=== PATIENT | male | born 1960 | race Caucasian/White ===

== ENCOUNTER 2018-10-31 18:30 | Observation (INO) ==
--- NOTE | 2018-10-31 19:35 | ED ---
HPI General Chief Complaint: Chest Pain Stated Complaint: Chest pain Time Seen by Provider: 10/31/18 19:21 Source: patient Mode of arrival: ambulatory Limitations: no limitations History of Present Illness HPI narrative: The patient is a 58-year-old male who presents to the emergency department for chest pain. The patient states he recently moved from [place] to the local area and does not have a local primary physician. The patient states he ran out of his medications including Coumadin, cannot recall all the names of his medications. The patient is on Coumadin for history of mechanical valve replacement to the aortic valve for a "leaky valve ". The [facility] , however, was unable to get the medications because he did not have a prescription. The patient was walking at approximately 5 PM when he developed chest pain which was substernal and radiated to the left upper extremity and shoulder. The pain is described as heaviness, constant, and associate with nausea, vomiting, diaphoresis, and dyspnea. The patient denies any known history of CAD or previous stent placement. The patient does have a history of aortic valve repair, mechanical, as well as hypertension. The patient denies any history of hyperlipidemia, diabetes, or tobacco use. Symptoms are moderate , there are no current alleviating factors. There are no current alleviating factors. MD complaint: Reports chest pain Duration: constant Onset: during exertion Pain location: Reports substernal and left chest Severity: moderate Severity scale (1-10): 5 Quality: Reports heaviness Pain radiation: Reports LUE Relieving factors: nothing Exacerbating factors: exertion Associated symptoms: Reports nausea, vomiting, diaphoresis and dyspnea Treatments prior to arrival chest pain: Reports none Related Data Home Medications Medication Instructions Recorded Confirmed atorvastatin 20 mg PO DAILY 10/31/18 10/31/18 bupropion HCl 150 mg PO BID 10/31/18 10/31/18 levothyroxine 25 mcg PO DAILY 10/31/18 10/31/18 losartan 50 mg PO DAILY 10/31/18 10/31/18 metoprolol tartrate 25 mg PO BID 10/31/18 10/31/18 ranitidine HCl 150 mg PO BID 10/31/18 10/31/18 warfarin [Coumadin] 3 mg PO QTUTHSA 10/31/18 10/31/18 warfarin [Coumadin] 6 mg PO DAILY 10/31/18 10/31/18 Allergies Allergy/AdvReac Type Severity Reaction Status Date / Time Penicillins Allergy Rash Verified 10/31/18 18:37 Review of Systems ROS: all other systems reviewed are negative [facility] Medical History Medical History Hypertension (Acute) Surgical History Surgical History H/O aortic valve replacement (Acute) Hx of cholecystectomy (Acute) Mechanical heart valve present (Acute) Social History Social History Substance History: Past History Second Hand Smoke Exposure: No Smoking Status: Former smoker How Often Do You Have a Drink Containing Alcohol: Never Recent Out of Country Travel within the Last 8 Weeks: No Immunization History Tetanus Immunization: Unsure Exam Narrative Exam Narrative: GENERAL: Awake, alert, nontoxic-appearing 58-year-old male who appears his stated age and is in no acute respiratory distress. SKIN: Focused skin assessment warm/dry. Multiple tattoos noted. HEAD: Atraumatic. Normocephalic. EYES: Pupils equal and round. No scleral icterus. No injection or drainage. ENT: No nasal bleeding or discharge. Mucous membranes pink and moist. NECK: Trachea midline. No JVD. CARDIOVASCULAR: Regular, heart rate in the 60s. Well-healed sternal scar. A click is noted over the heart consistent with previous mechanical valve replacement. RESPIRATORY: No accessory muscle use. Clear to auscultation. Breath sounds equal bilaterally. GASTROINTESTINAL: Abdomen soft, non-tender, nondistended. No epigastric tenderness. MUSCULOSKELETAL: No obvious deformities. No clubbing. No cyanosis. No edema. NEUROLOGICAL: Awake and alert. No obvious cranial nerve deficits. Motor grossly within normal limits. Normal speech. Nonfocal. Oriented x4. PSYCHIATRIC: Appropriate mood and affect; insight and judgment normal. Course Initial Documented Vital Signs Temperature 98.8 F 10/31/18 18:38 Pulse Rate 70 10/31/18 18:38 Respiratory Rate 18 10/31/18 18:38 Blood Pressure 179/89 H 10/31/18 18:38 Pulse Oximetry 99 10/31/18 18:38 Last Documented Vital Signs Temperature 98.8 F 10/31/18 18:38 Pulse Rate 65 10/31/18 19:32 Respiratory Rate 17 10/31/18 19:32 Blood Pressure 163/77 H 10/31/18 19:32 Pulse Oximetry 99 10/31/18 19:32 Medical Decision Making MDM Narrative Medical decision making narrative: IV was established, labs are drawn and sent, and the patient was placed on cardiac telemetry monitoring and continuous pulse oximetry monitoring. He was ordered and interpreted. Chest x-ray was obtained. INR was sent to lab. The patient was administered aspirin and placed on Nitropaste. The patient's INR was subtherapeutic at 1.5, therefore, the patient was administered Lovenox 1 mg/kg subcutaneously and Coumadin 6 mg orally. He cannot recall the exact dosing of his Coumadin, however, does note he takes 6 mg on certain days. He cannot recall the names of his other medications. Chest x-ray reveals postoperative changes with a mechanical valve but no obvious pulmonary edema and BNP is normal. The patient does have chest pain that radiates from under the left axilla with a history of hypertension, therefore, will be placed in the chest pain center for serial cardiac enzymes. He may benefit from treadmill stress test and/or nuclear medicine myocardial perfusion scan. The patient is comfortable with this plan of care and disposition. The patient does have a service dog, I discussed the service dog with the charge nurse who states the dog is able to stay in the hospital. Therefore, the patient will be a 23-hour observation to the chest pain center. Nursing staff was able to contact the patient's pharmacy and retrieve the rest of the medications including metoprolol, Zantac, levothyroxine, bupropion. Medical Screen Exam Complete: Yes Emergency Medical Condition: Yes Differential Diagnosis Differential Diagnosis: Differential diagnosis includes ACS, aortic valve repair , GERD, esophageal spasm, pancreatitis, gastritis, pleural effusion, pneumonia, pulmonary embolism. Lab Data Lab results reviewed: Yes I reviewed the patient's lab results. Result diagrams: 10/31/18 19:35 10/31/18 19:35 Lab Results 10/31/18 10/31/18 10/31/18 Range/Units 19:35 19:35 19:35 WBC 8.4 (4.0-11.0) th/mm3 RBC 4.30 L (4.50-5.90) mil/mm3 Hgb 12.5 L (13.0-17.0) gm/dL Hct 37.3 L (39.0-51.0) % MCV 86.9 (80.0-100.0) fL MCH 29.1 (27.0-34.0) pg MCHC 33.5 (32.0-36.0) % RDW 14.5 (11.6-17.2) % Plt Count 186 (150-450) th/mm3 MPV 8.0 (7.0-11.0) fL Neut % (Auto) 68.1 (16.0-70.0) % Lymph % (Auto) 23.6 (9.0-44.0) % Emmons % (Auto) 7.1 (0.0-8.0) % Eos % (Auto) 0.9 (0.0-4.0) % Baso % (Auto) 0.3 (0.0-2.0) % Neut # (Auto) 5.7 (1.8-7.7) th/mm3 Lymph # (Auto) 2.0 (1.0-4.8) th/mm3 Emmons # (Auto) 0.6 (0.0-0.9) th/mm3 Eos # (Auto) 0.1 (0.0-0.4) th/mm3 Baso # (Auto) 0.0 (0.0-0.2) th/mm3 WBC Differential . Differential Comment Auto diff final PT 14.7 H (9.8-11.6) sec INR 1.5 Ratio APTT 28.2 (23.4-31.7) sec Sodium 140 (136-145) meq/L Potassium 4.1 (3.5-5.1) meq/L Chloride 104 (98-107) meq/L Carbon Dioxide 28.0 (21.0-32.0) meq/L Anion Gap 8 (5-15) meq/L BUN 15 (7-18) mg/dL Creatinine 0.93 (0.60-1.30) mg/dL Estimated GFR 84 L (>89) mL/min Random Glucose 77 (74-106) mg/dL Calcium 8.8 (8.5-10.1) mg/dL Magnesium 1.8 (1.5-2.5) mg/dL Total Bilirubin 0.7 (0.2-1.0) mg/dL AST 25 (15-37) U/L ALT 18 (12-78) U/L Alkaline Phosphatase 49 (45-117) U/L Total Creatine Kinase 185 (39-308) U/L CK-MB (CK-2) 1.9 (0.5-3.6) ng/mL Troponin I Less than 0.02 L (0.02-0.05) ng/mL Total Protein 7.4 (6.4-8.2) g/dL Albumin 3.8 (3.4-5.0) g/dL Lipase 216 (73-393) U/L Imaging Data Attestation: I personally reviewed and interpreted this imaging study as follows : My impression: No acute cardiopulmonary disease. Mechanical valve noted. Radiologist's impression: Chest X-Ray 10/31/18 19:28 CONCLUSION: No acute cardiopulmonary disease. ECG Data EKG Prior to Arrival: No Attestation: I personally reviewed and interpreted this ECG as follows: Interpretation: EKG reveals normal sinus rhythm with a rate of 66. Moderate intraventricular conduction delay with QRS of [address] elevations or depressions noted. Discharge Plan Discharge Disposition Patient Disposition: ED Admit(ED Internal Use Only) Discharge Condition Condition: Stable Discharge Order Discharge Orders: ED Use Only Admit Order (Routine); Ordered 10/31/18 Ordered By: Senthil Markham Discharge Details Diagnosis: Chest pain Physicians Team ED Provider: Senthil Markham Primary Care Provider: UNKNOWN, Rxs /Orders / Referrals /Forms Prescriptions: No Action warfarin [Coumadin] 3 mg Tablet 3 mg PO QTUTHSA RF: 0 warfarin [Coumadin] 6 mg Tablet 6 mg PO DAILY RF: 0 losartan 50 mg Tablet 50 mg PO DAILY RF: 0 bupropion HCl 150 mg Tablet Sustained-Release 12 Hr 150 mg PO BID RF: 0 atorvastatin 20 mg Tablet 20 mg PO DAILY RF: 0 levothyroxine 25 mcg Tablet 25 mcg PO DAILY RF: 0 ranitidine HCl 150 mg Tablet 150 mg PO BID RF: 0 metoprolol tartrate 25 mg Tablet 25 mg PO BID RF: 0 Discharge Instructions Patient Printed Instructions: Chest Pain (ED) Status ED Status: Admitted Observation Patient
--- NOTE | 2018-10-31 19:56 | XR ---
EXAM DATE: 10/31/2018 7:52 PM EST AGE/SEX: 58 years / Male INDICATIONS: Chest pain for 3 hours. CLINICAL DATA: This is the patient's initial encounter. Patient reports that signs and symptoms have been present for 1 day and indicates a pain score of 5/10. MEDICAL/SURGICAL HISTORY: None. . Valve replacement. COMPARISON: None. FINDINGS: A single AP view of the chest demonstrates the lungs to be symmetrically aerated without evidence of mass, infiltrate or effusion. The cardiomediastinal contours are unremarkable. Osseous structures a re intact. The patient is status post median sternotomy. There is an artificial heart valve in place . CONCLUSION: No acute cardiopulmonary disease. Electronically signed by: Isauro Villa MD 10/31/2018 7:55 PM EST
[2018-10-31 20:02] LABS: Baso % (Auto) 0.3 % (0.0-2.0); Eos # (Auto) 0.1 th/mm3 (0.0-0.4); Eos % (Auto) 0.9 % (0.0-4.0); Hematocrit 37.3 % (39.0-51.0); Hemoglobin 12.5 gm/dL (13.0-17.0); Lymph % (Auto) 23.6 % (9.0-44.0); Mean Corpuscular HGB Conc 33.5 % (32.0-36.0); Mean Corpuscular Hemoglobin 29.1 pg (27.0-34.0); Mean Corpuscular Volume 86.9 fL (80.0-100.0); Mono # (Auto) 0.6 th/mm3 (0.0-0.9); Mono % (Auto) 7.1 % (0.0-8.0); Neut # (Auto) 5.7 th/mm3 (1.8-7.7); Neut % (Auto) 68.1 % (16.0-70.0); Platelet Count 186 th/mm3 (150-450); Red Cell Distribution Width 14.5 % (11.6-17.2); White Blood Count 8.4 th/mm3 (4.0-11.0)
[2018-10-31 20:12] LABS: Activated Partial Thrombo Time 28.2 sec (23.4-31.7); INR 1.5 Ratio; Prothrombin Time 14.7 sec (9.8-11.6)
[2018-10-31] MEDS ORDERED: Enoxaparin Inj 100 MG/ML Syringe SQ ONE (20:15)
[2018-10-31 20:24] LABS: Albumin 3.8 g/dL (3.4-5.0); Anion Gap 8 meq/L (5-15); Aspartate Aminotransferase 25 U/L (15-37); Blood Urea Nitrogen 15 mg/dL (7-18); Calcium 8.8 mg/dL (8.5-10.1); Chloride 104 meq/L (98-107); Glomerular Filtration Rate 84 mL/min (>89); Glucose,Random 77 mg/dL (74-106); Lipase 216 U/L (73-393); Magnesium 1.8 mg/dL (1.5-2.5); Potassium 4.1 meq/L (3.5-5.1); Sodium 140 meq/L (136-145)
[2018-10-31 20:26] LABS: Alanine Aminotransferase 18 U/L (12-78)
[2018-10-31 20:29] LABS: Alkaline Phosphatase 49 U/L (45-117); Creatine Kinase 185 U/L (39-308); Total Protein 7.4 g/dL (6.4-8.2)
[2018-10-31 20:41] LABS: Creatine Kinase MB 1.9 ng/mL (0.5-3.6)
[2018-10-31] MEDS ORDERED: Acetaminophen 500 MG Tablet PO PRN (20:46)
[2018-10-31] MEDS ORDERED: Morphine Inj 4 MG/ML Vial IV.PUSH PRN (20:46)
[2018-10-31] MEDS ORDERED: Famotidine 20 MG Tablet PO SCH (21:00)
[2018-10-31 23:24] LABS: Troponin I 0.02 ng/mL (0.02-0.05)
[2018-11-01 00:21] VITALS: RESP 16
[2018-11-01 03:47] LABS: Troponin I 0.02 ng/mL (0.02-0.05)
--- NOTE | 2018-11-01 06:57 | ECG ---
Date Performed: 10/31/2018 Time Performed: 19:27:33 PTAGE: 58 years EKG: Sinus rhythm BORDERLINE LEFT AXIS DEVIATION MODERATE INTRAVENTRICULAR CONDUCTION DELAY BORDERLINE ECG NO PREVIOUS TRACING DOCTOR: Roel Mak Interpretating Date/Time 11/02/2018 07:08:20
--- NOTE | 2018-11-01 08:33 | P.HPCA ---
History of Present Illness Primary Care Physician: UNKNOWN Chief Complaint: Chest pain History of Present Illness: This is a 58-year-old male with a stated history of aortic valve replacement in 2007, hypertension, hyperlipidemia, and hypothyroidism that presents to ED to be evaluated for chest pain and also stating he is out of his medications. States he recently moved to this area from [place] about 2 weeks ago. Ran out of medications 2 weeks ago. List of medications include atorvastatin, bupropion, levothyroxine, losartan, metoprolol tartrate, ranitidine, and 2 different doses of warfarin (3 mg and 6 mg.) States he alternates the warfarin doses because of he takes only 6 mg his INR will elevate too high. Also states he does not have a means of checking his Coumadin level and cannot recall the last time that was checked. Complains of developing a pressure in the center of his chest as he is walking at [facility] yesterday at 1635. He was short of breath with it. No nausea or diaphoresis. States he had a discomfort radiating into his left arm. States symptoms lasted about 4 hours. Found nothing to worsen or improve them. He walked from [facility] to the emergency department, states symptoms did not worsen during that activity. Cannot recall his last cardiac evaluation. States is easily been more than a year ago however he cannot recall truly when it was or where it was done at. He does not believe he has had a heart catheterization since 2007. States he had a heart catheterization prior to the valve being replaced, dates no intervention was needed regarding his coronary arteries. History of aortic valve replacement in 2007. Does not truly know his coronary artery status other than he needed no stenting and did not need bypass when his valve was replaced. Hypertension, hyperlipidemia, and hypothyroidism. Denies diabetes. States his mother in her 40s of some type of cardiac event. States he quit smoking 15 years ago but prior to that he smoked on average 2 pack of cigarettes daily for 12 years. States he has had no alcohol or illicit drug use a few years. - Diagnosis (1) Chest pain (2) History of aortic valve replacement (3) Hypertension (4) Hyperlipidemia (5) Hypothyroidism Review of Systems General: Patient denies fevers, chills, and recent travel. HEENT: Patient denies headache, sore throat, difficulty swallowing. Cardiovascular: Has the chest discomfort as mentioned above. Denies sensation of heart beating rapidly or irregularly. No syncope. Denies diaphoresis. Respiratory: He was short of breath. Denies inspirational chest discomfort. Denies coughing wheezing or hemoptysis. GI: Patient denies nausea, vomiting, diarrhea, abdominal pain, bloody stools. Musculoskeletal: Patient denies joint pain or edema. Denies calf pain or edema. Neurovascular: Patient denies numbness, tingling, weakness in extremities. Denies headache. Endocrine: Denies polyuria and polydipsia. Hematologic: Denies easy bruising. Skin: Denies rash or itching. [facility] - History History Provided By: Patient - Medical History Medical History: Medical History (Last Updated 10/31/18 @ 19:29 by Latricia Milan) Hypertension - Surgical History Surgical History: Surgical History (Last Updated 10/31/18 @ 19:29 by Latricia Milan) H/O aortic valve replacement Hx of cholecystectomy Mechanical heart valve present - Tobacco History Second Hand Smoke Exposure: No Tobacco Use In Past 30 Days: No Smoking Status: Former smoker Tobacco Type: Cigarettes - Alcohol History How Often Do You Have a Drink Containing Alcohol: Never - Substance Use History Substance History: Past History - Substance Use Type Crack/Cocaine Status: Sustained Remission Route Used: Inhalation - Travel History Recent Travel in the [place] Within the Last 8 Weeks: Yes Recent Travel Out of the Country Within the Last 8 Weeks: No - Immunization History Tetanus Immunization: Unsure Medications and Allergies Active Medications: Active Medications Acetaminophen (Tylenol) 500 mg PO Q4H PRN PRN Reason: HEADACHE Last Admin: 10/31/18 23:26 Dose: 500 mg Aspirin (Aspirin) 325 mg PO DAILY [facility] Atorvastatin Calcium (Lipitor) 20 mg PO DAILY [facility] Bupropion HCl (Wellbutrin Sr) 150 mg PO BID [facility] Famotidine (Pepcid) 20 mg PO BID [facility] Last Admin: 10/31/18 21:05 Dose: 20 mg Levothyroxine Sodium (Synthroid) 25 mcg PO DAILY [facility] Losartan Potassium (Cozaar) 50 mg PO DAILY [facility] Metoprolol Tartrate (Lopressor) 25 mg PO BID [facility] Morphine Sulfate (Morphine Inj) 2 mg IV.PUSH Q4H PRN PRN Reason: PAIN SCALE 8 TO 10 Nitroglycerin (Nitrostat Sl) 0.4 mg SL Q5M PRN PRN Reason: CHEST PAIN Non-Formulary Medication (Ranitidine Hcl [Ranitidine Hcl]) 150 mg PO BID [facility] Ondansetron HCl (Zofran Inj) 4 mg IV.PUSH Q6H PRN PRN Reason: NAUSEA Sodium Chloride (Ns Flush) 2 ml IV.FLUSH UNSCH PRN PRN Reason: FLUSH AFTER USING IV ACCESS Sodium Chloride (Ns Flush) 2 ml IV.FLUSH BID [facility] Last Admin: 10/31/18 21:05 Dose: 2 ml Sodium Chloride (Ns Flush) 2 ml IV.FLUSH PRN PRN PRN Reason: FLUSH AFTER USING IV ACCESS Allergies Allergy/AdvReac Type Severity Reaction Status Date / Time Penicillins Allergy Rash Verified 10/31/18 18:37 Home Medications Medication Instructions Recorded Confirmed Type atorvastatin 20 mg PO DAILY 10/31/18 10/31/18 History bupropion HCl 150 mg PO BID 10/31/18 10/31/18 History levothyroxine 25 mcg PO DAILY 10/31/18 10/31/18 History losartan 50 mg PO DAILY 10/31/18 10/31/18 History metoprolol tartrate 25 mg PO BID 10/31/18 10/31/18 History ranitidine HCl 150 mg PO BID 10/31/18 10/31/18 History warfarin [Coumadin] 3 mg PO QTUTHSA 10/31/18 10/31/18 History warfarin [Coumadin] 6 mg PO DAILY 10/31/18 10/31/18 History Exam Vital signs: Vital Signs 10/31/18 18:38 10/31/18 19:32 11/01/18 00:00 Temperature 98.8 F 98.4 F Pulse Rate 70 65 66 Respiratory Rate 18 17 16 Blood Pressure 179/89 H 163/77 H 114/65 Pulse Oximetry 99 99 97 11/01/18 04:00 Temperature 97.9 F Pulse Rate 57 L Respiratory Rate 16 Blood Pressure 120/69 Pulse Oximetry 96 Intake & Output 10/31/18 11/01/18 11/01/18 18:59 06:59 18:59 Weight 99.79 kg 99.79 kg Other: Date of Last Bowel Movement 10/31/18 Weight On Admission 99.79 kg Narrative: GENERAL: This is a well-nourished, well-developed patient, in no apparent distress. Patient speaks in clear complete sentences. Patient is pleasant. HEENT: Head is atraumatic and normocephalic. Neck is supple without lymphadenopathy and trachea is midline. No JVD or carotid bruits. CARDIOVASCULAR: Grade 2 systolic murmur with click on right sternal border. Regular rate and rhythm without gallops, or rubs. RESPIRATORY: Clear to auscultation. Breath sounds equal bilaterally. No wheezes , rales, or rhonchi. Chest wall is nontender. No use of accessory muscles. GASTROINTESTINAL: Abdomen is nontender, nondistended. Abdomen soft. No obvious pulsatile mass or bruit. No CVA tenderness. Strong femoral pulses bilaterally. Normal bowel sounds in all quadrants. MUSCULOSKELETAL: Patient is moving upper and lower extremities freely. No calf tenderness or edema, no Homans sign. Strong pulses in upper and lower extremities. NEUROLOGICAL: Patient is alert and oriented. Cranial nerves 2-12 are grossly intact. No focal deficits and speech is clear. SKIN: No rash and turgor is normal. Results 10/31/18 19:35 10/31/18 19:35 Cardiac Enzymes 10/31/18 10/31/18 11/01/18 Range/Units 19:35 22:35 01:35 AST 25 (15-37) U/L CK-MB (CK-2) 1.9 (0.5-3.6) ng/mL Troponin I Less than 0.02 L 0.02 0.02 (0.02-0.05) ng/mL Coagulation 10/31/18 Range/Units 19:35 PT 14.7 H (9.8-11.6) sec APTT 28.2 (23.4-31.7) sec CBC 10/31/18 Range/Units 19:35 WBC 8.4 (4.0-11.0) th/mm3 RBC 4.30 L (4.50-5.90) mil/mm3 Hgb 12.5 L (13.0-17.0) gm/dL Hct 37.3 L (39.0-51.0) % Plt Count 186 (150-450) th/mm3 Neut # (Auto) 5.7 (1.8-7.7) th/mm3 Lymph # (Auto) 2.0 (1.0-4.8) th/mm3 Perkins # (Auto) 0.6 (0.0-0.9) th/mm3 Eos # (Auto) 0.1 (0.0-0.4) th/mm3 Baso # (Auto) 0.0 (0.0-0.2) th/mm3 Comprehensive Metabolic Panel 10/31/18 Range/Units 19:35 Sodium 140 (136-145) meq/L Potassium 4.1 (3.5-5.1) meq/L Chloride 104 (98-107) meq/L Carbon Dioxide 28.0 (21.0-32.0) meq/L BUN 15 (7-18) mg/dL Creatinine 0.93 (0.60-1.30) mg/dL Calcium 8.8 (8.5-10.1) mg/dL AST 25 (15-37) U/L ALT 18 (12-78) U/L Alkaline Phosphatase 49 (45-117) U/L Total Protein 7.4 (6.4-8.2) g/dL Albumin 3.8 (3.4-5.0) g/dL Intake and Output 10/31/18 11/01/18 11/01/18 22:59 06:59 14:59 Other: Date of Last Bowel Movement 10/31/18 10/31/18 Weight 99.79 kg 99.79 kg Weight On Admission 99.79 kg - Imaging and Cardiology Imaging: Impressions Chest X-Ray 10/31/18 19:28 CONCLUSION: No acute cardiopulmonary disease. EKG interpretations - EKG EKG shows: sinus rhythm (Sinus rhythm with nonspecific T wave changes.) Caprini VTE Risk Assessment Caprini VTE Risk Assessment: No/Low Risk (score <= 1) Caprini Risk Assessment Model: Point Value = 1 Point Value = 2 Point Value = 3 Point Value = 5 Age 41-60 Minor surgery BMI > 25 kg/m2 Swollen legs Varicose veins or History of unexplained or recurrent spontaneous Oral contraceptives or hormone replacement Sepsis (< 1 month) Serious lung disease, including pneumonia (< 1 month) Abnormal pulmonary function Acute myocardial infarction Congestive heart failure (< 1 month) History of inflammatory bowel disease Medical patient at bed rest Age 61-74 Arthroscopic surgery Major open surgery (> 45 min) Laparoscopic surgery (> 45 min) Malignancy Confined to bed (> 72 hours) Immobilizing plaster cast Central venous access Age >= 75 History of VTE Family history of VTE Factor V Leiden Prothrombin [id number] Lupus anticoagulant Anticardiolipin antibodies Elevated serum homocysteine Heparin-induced thrombocytopenia Other congenital or acquired thrombophilia Stroke (< 1 month) Elective arthroplasty Hip, pelvis, or leg fracture Acute spinal cord injury (< 1 month) Prophylaxis Regimen: Total Risk Factor Score Risk Level Prophylaxis Regimen 0-1 Low Early ambulation 2 Moderate Order ONE of the following: *Sequential Compression Device (SCD) *Heparin 5000 units SQ BID 3-4 Higher Order ONE of the following medications: *Heparin 5000 units SQ TID *Enoxaparin/Lovenox 40 mg SQ daily (WT < 150 kg, CrCl > 30 mL/min) *Enoxaparin/Lovenox 30 mg SQ daily (WT < 150 kg, CrCl > 10-29 mL/min) *Enoxaparin/Lovenox 30 mg SQ BID (WT < 150 kg, CrCl > 30 mL/min) AND/OR *Sequential Compression Device (SCD) 5 or more Highest Order ONE of the following medications: *Heparin 5000 units SQ TID (Preferred with Epidurals) *Enoxaparin/Lovenox 40 mg SQ daily (WT < 150 kg, CrCl > 30 mL/min) *Enoxaparin/Lovenox 30 mg SQ daily (WT < 150 kg, CrCl > 10-29 mL/min) *Enoxaparin/Lovenox 30 mg SQ BID (WT < 150 kg, CrCl > 30 mL/min) AND *Sequential Compression Device (SCD) Assessment and Plan - Assessment (1) Chest pain Code(s): R07.9 - Chest pain, unspecified Status: Acute (2) History of aortic valve replacement Code(s): Z95.2 - Presence of prosthetic heart valve Status: Acute (3) Hypertension Code(s): I10 - Essential (primary) hypertension Status: Acute (4) Hyperlipidemia Code(s): E78.5 - Hyperlipidemia, unspecified Status: Acute (5) Hypothyroidism Code(s): E03.9 - Hypothyroidism, unspecified Status: Acute - Plan * Chest pain: Patient has had serial cardiac enzymes and EKGs for ruling out purposes. He will be seen by Dr. Aaron of cardiology and the chest pain center and will undergo a Lexiscan. He will be discharged home if his stress test is nonischemic with instructions to follow-up with the PCP and [facility]. Return to ED for interval issues. He will need local physician for medication refills. * History of aortic valve replacement: He needs a follow-up with [facility]. He needs to be on his medication as instructed. He should have his INR levels managed by same provider. * Hypertension: Continue medication. * Hyperlipidemia: Continue medication. * Hypothyroidism: Continue medication. Patient is stable at this time. He is agreeable to this plan. H&P: Quality - VTE Deep Vein Thrombosis/Pulmonary Embolism Present on Admission: No (1) Chest pain Qualifiers: Chest pain type: unspecified Qualified Code(s): R07.9 - Chest pain, unspecified
[2018-11-01] MEDS ORDERED: Famotidine 20 MG Tablet PO SCH (09:00)
[2018-11-01] MEDS ORDERED: Metoprolol Tartrate 25 MG Tablet PO SCH (09:00)
[2018-11-01] MEDS ORDERED: buPROPion 150 MG 12 HR Tablet PO SCH (09:00)
[2018-11-01] MEDS ORDERED: Aspirin 325 MG Tablet PO SCH (09:00)
--- NOTE | 2018-11-01 09:14 | ECG ---
Date Performed: 11/01/2018 Time Performed: 01:40:05 PTAGE: 58 years EKG: Sinus rhythm MARKED LEFT AXIS DEVIATION PATTERN CONSISTENT WITH PULMONARY DISEASE NONSPECIFIC T-WAVE ABNORMALITY ABNORMAL ECG PREVIOUS TRACING : 10/31/2018 22.38 Since previous tracing, no significant change noted DOCTOR: Thien Murphy Interpretating Date/Time 11/01/2018 09:12:13
--- NOTE | 2018-11-01 09:14 | ECG ---
Date Performed: 10/31/2018 Time Performed: 22:38:00 PTAGE: 58 years EKG: Sinus rhythm BORDERLINE LEFT AXIS DEVIATION NONSPECIFIC T-WAVE ABNORMALITY BORDERLINE ECG PREVIOUS TRACING : 10/31/2018 19.27 Since previous tracing, T wave changes are new DOCTOR: Thien Murphy Interpretating Date/Time 11/01/2018 09:12:58
--- NOTE | 2018-11-01 10:15 | P.PNCA ---
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 He could not get renewed prescriptions either [facility] or [facility] and came to the emergency room so that he could refill. However he complained of chest pain described as an episode yesterday at about 4:00 which was a heaviness in his chest with no radiation. This was not precipitated or relieved by any factors. He denies any associated symptoms such as nausea vomiting diaphoresis. (This history differs from his emergency room history) The pain abated by this morning but subsequently he has had 2 episodes of sharp stabbing pain lasting only a couple of seconds precipitated by motion. His other real complaint is that he has a lump that is come up in the arch of his left foot that is severely painful impeding his ability to walk well. He also complains of some numbness and tingling in his left leg and thigh. Pertinent history includes hypertension hyperlipidemia and possible thyroid disease. Unfortunately he is either a poor or vague historian. He does deny alcohol tobacco and drug abuse for many years but does have a distant history of heavy use. Medications and Allergies Active Medications: Active Medications Acetaminophen (Tylenol) 500 mg PO Q4H PRN PRN Reason: HEADACHE Last Admin: 10/31/18 23:26 Dose: 500 mg Aspirin (Aspirin) 325 mg PO DAILY [facility] Last Admin: 11/01/18 08:49 Dose: 325 mg Atorvastatin Calcium (Lipitor) 20 mg PO DAILY [facility] Last Admin: 11/01/18 08:49 Dose: 20 mg Bupropion HCl (Wellbutrin Sr) 150 mg PO BID [facility] Last Admin: 11/01/18 08:49 Dose: 150 mg Famotidine (Pepcid) 20 mg PO BID [facility] Last Admin: 11/01/18 08:49 Dose: 20 mg Levothyroxine Sodium (Synthroid) 25 mcg PO DAILY@0600 [facility] Last Admin: 11/01/18 09:00 Dose: 25 mcg Losartan Potassium (Cozaar) 50 mg PO DAILY [facility] Last Admin: 11/01/18 08:49 Dose: 50 mg Metoprolol Tartrate (Lopressor) 25 mg PO BID [facility] Last Admin: 11/01/18 08:49 Dose: 25 mg Morphine Sulfate (Morphine Inj) 2 mg IV.PUSH Q4H PRN PRN Reason: PAIN SCALE 8 TO 10 Nitroglycerin (Nitrostat Sl) 0.4 mg SL Q5M PRN PRN Reason: CHEST PAIN Ondansetron HCl (Zofran Inj) 4 mg IV.PUSH Q6H PRN PRN Reason: NAUSEA Sodium Chloride (Ns Flush) 2 ml IV.FLUSH BID [facility] Last Admin: 11/01/18 08:49 Dose: 2 ml Sodium Chloride (Ns Flush) 2 ml IV.FLUSH PRN PRN PRN Reason: FLUSH AFTER USING IV ACCESS Allergies Allergy/AdvReac Type Severity Reaction Status Date / Time Penicillins Allergy Rash Verified 10/31/18 18:37 Home Medications Medication Instructions Recorded Confirmed Type atorvastatin 20 mg PO DAILY 10/31/18 10/31/18 History bupropion HCl 150 mg PO BID 10/31/18 10/31/18 History levothyroxine 25 mcg PO DAILY 10/31/18 10/31/18 History losartan 50 mg PO DAILY 10/31/18 10/31/18 History metoprolol tartrate 25 mg PO BID 10/31/18 10/31/18 History ranitidine HCl 150 mg PO BID 10/31/18 10/31/18 History warfarin [Coumadin] 3 mg PO QTUTHSA 10/31/18 10/31/18 History warfarin [Coumadin] 6 mg PO DAILY 10/31/18 10/31/18 History Physical Exam Vital signs: Vital Signs 10/31/18 18:38 10/31/18 19:32 11/01/18 00:00 Temperature 98.8 F 98.4 F Pulse Rate 70 65 66 Respiratory Rate 18 17 16 Blood Pressure 179/89 H 163/77 H 114/65 Pulse Oximetry 99 99 97 11/01/18 04:00 11/01/18 08:47 Temperature 97.9 F 98.1 F Pulse Rate 57 L 56 L Respiratory Rate 16 16 Blood Pressure 120/69 139/75 Pulse Oximetry 96 97 Intake & Output 10/31/18 11/01/18 11/01/18 18:59 06:59 18:59 Weight 99.79 kg 99.79 kg Other: Date of Last Bowel Movement 10/31/18 Weight On Admission 99.79 kg Narrative: Well-nourished well-developed heavily tattooed white male resting comfortably in bed with his dog at the bedside. Head bald, normocephalic atraumatic Eyes PERRLA EOMI sclera clear mouth mucous membranes moist tongue well papillated teeth in poor state of repair but no lesions Neck supple no masses nodes no JVD Chest clear to auscultation with no rales wheezes or rhonchi but somewhat diminished breath sounds Cardiovascular regular sinus rhythm no gallops rubs or murmurs Abdomen soft nontender no guarding or rebound Extremities no clubbing cyanosis or edema. The arch of the left foot does demonstrate a small pea-sized and exquisitely tender mass. There is no erythema or obvious injury tract. Psychiatric patient demonstrates a somewhat distant cold affect and shows no emotion while discussing any of his issues. He appears to be marginally hostile Neurologic memory appears to be intact. Cranial nerves are intact. Motor is intact upper and lower extremities and grossly equal. Results 10/31/18 19:35 10/31/18 19:35 Cardiac Enzymes 10/31/18 10/31/18 11/01/18 Range/Units 19:35 22:35 01:35 AST 25 (15-37) U/L CK-MB (CK-2) 1.9 (0.5-3.6) ng/mL Troponin I Less than 0.02 L 0.02 0.02 (0.02-0.05) ng/mL Coagulation 10/31/18 Range/Units 19:35 PT 14.7 H (9.8-11.6) sec APTT 28.2 (23.4-31.7) sec CBC 10/31/18 Range/Units 19:35 WBC 8.4 (4.0-11.0) th/mm3 RBC 4.30 L (4.50-5.90) mil/mm3 Hgb 12.5 L (13.0-17.0) gm/dL Hct 37.3 L (39.0-51.0) % Plt Count 186 (150-450) th/mm3 Neut # (Auto) 5.7 (1.8-7.7) th/mm3 Lymph # (Auto) 2.0 (1.0-4.8) th/mm3 Elbert # (Auto) 0.6 (0.0-0.9) th/mm3 Eos # (Auto) 0.1 (0.0-0.4) th/mm3 Baso # (Auto) 0.0 (0.0-0.2) th/mm3 Comprehensive Metabolic Panel 10/31/18 Range/Units 19:35 Sodium 140 (136-145) meq/L Potassium 4.1 (3.5-5.1) meq/L Chloride 104 (98-107) meq/L Carbon Dioxide 28.0 (21.0-32.0) meq/L BUN 15 (7-18) mg/dL Creatinine 0.93 (0.60-1.30) mg/dL Calcium 8.8 (8.5-10.1) mg/dL AST 25 (15-37) U/L ALT 18 (12-78) U/L Alkaline Phosphatase 49 (45-117) U/L Total Protein 7.4 (6.4-8.2) g/dL Albumin 3.8 (3.4-5.0) g/dL Intake and Output 10/31/18 11/01/18 11/01/18 22:59 06:59 14:59 Other: Date of Last Bowel Movement 10/31/18 10/31/18 Weight 99.79 kg 99.79 kg Weight On Admission 99.79 kg - Imaging and Cardiology Imaging: Impressions Chest X-Ray 10/31/18 19:28 CONCLUSION: No acute cardiopulmonary disease. Assessment and Plan - Assessment (1) Chest pain Code(s): R07.9 - Chest pain, unspecified Status: Acute Plan: Patient has ruled out using ACS. His underlying problem is a prosthetic aortic valve and the need to obtain prescription for Coumadin for this. His chest pain is highly atypical and probably represented an excuse for being seen in the emergency room to obtain prescriptions. His other issue is his sore foot precludes him from walking easily. Spent some time discussing options with him regarding ongoing care. He was being seen and followed in a community clinic in [place] apparently doing well with the care he received there. I have explained that it sounds like we have nothing quite similar here and that he may strongly consider returning to [place] to reestablish with the clinic. He will be given prescription for low-level Coumadin since he is not in a situation where he can have his INRs checked. He is strongly encouraged to seek a means for long-term follow-up with an explanation of the gravity of the situation if he does not. (2) History of aortic valve replacement Code(s): Z95.2 - Presence of prosthetic heart valve Status: Acute (3) Hypertension Code(s): I10 - Essential (primary) hypertension Status: Acute (4) Hyperlipidemia Code(s): E78.5 - Hyperlipidemia, unspecified Status: Acute (5) Hypothyroidism Code(s): E03.9 - Hypothyroidism, unspecified Status: Acute - Plan * Chest pain: Patient has had serial cardiac enzymes and EKGs for ruling out purposes. He will be seen by Dr. Aaron of cardiology and the chest pain center and will undergo a Lexiscan. He will be discharged home if his stress test is nonischemic with instructions to follow-up with the PCP and senior credit officer. Return to ED for interval issues. He will need local physician for medication refills. * History of aortic valve replacement: He needs a follow-up with senior credit officer. He needs to be on his medication as instructed. He should have his INR levels managed by same provider. * Hypertension: Continue medication. * Hyperlipidemia: Continue medication. * Hypothyroidism: Continue medication. Patient is stable at this time. He is agreeable to this plan. (1) Chest pain Qualifiers: Chest pain type: unspecified Qualified Code(s): R07.9 - Chest pain, unspecified
[2018-11-01] MEDS ORDERED: Regadenoson Inj 0.4 MG/5 ML Syringe IV.PUSH ONE (11:20)
--- NOTE | 2018-11-01 13:01 | NM ---
EXAM DATE: 11/01/2018 12:43 PM EST AGE/SEX: 58 years / Male INDICATIONS:Angina. . Chest pain. CLINICAL DATA: This is the patient's initial encounter. Patient reports that signs and symptoms have been present for 1 day and indicates a pain score of 4/10. MEDICAL/SURGICAL HISTORY: Hypertension. Cholecystectomy. Aortic valve replacement. COMPARISON: No prior exams available for comparison. DOSE: 8.8 mCi Tc 99m Myoview at rest 26.8 mCi [id number] at stress 0.4 mg Lexiscan STRESS SYMPTOMS: Chest pain. EJECTION FRACTION: 40 % TECHNIQUE: The patient underwent pharmacologic stress with infusion of prescribed dose. Continuous ECG tracing was monitored during stress. Gated SPECT imaging was performed after stress and conventi onal SPECT imaging was performed at rest. The examination was performed on a SPECT/CT scanner, both attenuation and non-corrected datasets were reviewed. FINDINGS: Distribution: The maximum perfused segment at stress is in the anterior wall. Perfusion Study: There is a small to moderate size moderate severity initially reversible defect in volving the inferior apex and lateral wall. Gated Study: There is hypokinesis in the apex and inferior wall Segments. The ejection fraction is calculated at 40%. RISK CATEGORY: Intermediate (1-3 % Annual Mortality Rate) CONCLUSION: 1. Decreased calculated ejection fraction of 40% with hypokinesis in the apex and inferior [place]. 2. Partially reversible perfusion abnormality involving the inferior apex and lateral wall. This cou ld indicate ischemia. Electronically signed by: Isauro Villa MD Board Certified Radiologist 11/01/2018 12:59 PM [facility]DR[facility] Camp
[2018-11-01 13:40] VITALS: BP 142/71; PULSE 50; TEMP 97.9; O2SAT 96
--- NOTE | 2018-11-02 07:45 | TR ---
Date Performed: 11/01/2018 Time Performed: 11:11:00 DOCTOR: Thien Murphy DRUG LIST: CLINICAL HISTORY: REASON FOR TEST: REASON FOR ENDING: OBSERVATION: CONCLUSION: COMMENTS: Lexiscan stress test was performed under standard four minute protocol. Radionuclide was injected one minute prior to ending the test. No electrocardiographic abormalities were present t o suggest ischemia. Nuclear imaging and interpretation are pending.
== END 2018-11-01 15:30 | disposition left against medical advice (07) ==
LOC: NEDA 18:30 → NEPC 18:30 → NEPFCDU 21:46
PROVIDERS: ADMIT Internal Medicine Cardiovascular Disease; ATTEND Internal Medicine Cardiovascular Disease